=== PATIENT | male | born 1950 | race Caucasian/White ===

== ENCOUNTER 2018-05-15 08:48 | Day surgery (SDC) | payer MEDICARE, BC ==
[~2018-05-15 08:48] MED LIST: Lactated Ringers 1,000 ML IV SCH; Lidocaine 1% 4 ML ONE; Lidocaine 1%/Sod Bicarbonate in NS 8.4% 1 ML Syringe IDERM PRN; Midazolam 1 MG/ML 2 ML SDV ONE; Propofol 200 MG/20 ML SDV ONE; Sodium Chloride 0.9% 10 ML Syringe FLUSH PRN; fentaNYL 100 MCG/2 ML SDV ONE
--- NOTE | 2018-05-15 09:22 | PCM.PREANE ---
Preanesthetic Assessment - Procedure Proposed Procedure: screening colonoscopy - Anesthesia/Transfusion/Family Hx Anesthesia History: Prior Anesthesia Reaction Type of Anesthesia Reaction: Excessive Somnolence Family History of Anesthesia Reaction: No Transfusion History: No Prior Transfusion(s) - Review of Systems General: No Symptoms Pulmonary: No Symptoms Cardiovascular: No Symptoms Gastrointestinal: No Symptoms Neurological: No Symptoms - Physical Assessment NPO Status Date: 05/14/18 NPO Status Time: 22:30 O2 Sat by Pulse Oximetry: 93 Respiratory Rate: 16 Vital Signs: Last Vital Signs Temp 98.5 F 05/15/18 09:05 Pulse 79 05/15/18 09:05 Resp 16 05/15/18 09:05 BP 146/102 H 05/15/18 09:05 Pulse Ox 93 L 05/15/18 09:05 Height: 6 ft Weight: 133.81 kg ASA Class: 2 Mental Status: Alert & Oriented x3 Airway Class: Mallampati = 2 Dentition: Reports: Broken Tooth/Teeth, Missing Tooth/Teeth, Caries Thyro-Mental Finger Breadths: 3 Mouth Opening Finger Breadths: 3 ROM/Head Extension: Full Lungs: Clear to Auscultation, Normal Respiratory Effort Cardiovascular: Regular Rate, Regular Rhythm - Allergies Allergies/Adverse Reactions: Allergies Allergy/AdvReac Type Severity Reaction Status Date / Time No Known Allergies Allergy Verified 05/14/18 13:30 - Blood Blood Available: No - Acknowledgements Anesthesia Type Planned: MAC Pt an Appropriate Candidate for the Planned Anesthesia: Yes Alternatives and Risks of Anesthesia Discussed w Pt/Guardian: Yes Pt/Guardian Understands and Agrees with Anesthesia Plan: Yes PreAnesthesia Questionnaire HEENT History: Reports: Impaired Vision Cardiovascular History: Reports: Hypertension Respiratory History: Reports: None Gastrointestinal History: Reports: None Genitourinary History: Reports: None [employer]ER History: Reports: None Musculoskeletal History: Reports: None Neurological History: Reports: None Psychiatric History: Reports: None Endocrine/Metabolic History: Reports: None, Obesity/BMI 30+ Hematologic History: Reports: None Immunologic History: Reports: None Oncologic (Cancer) History: Reports: None Dermatologic History: Reports: None - Past Surgical History Head Surgeries/Procedures: Reports: None HEENT Surgical History: Reports: None Cardiovascular Surgical History: Reports: None Respiratory Surgical History: Reports: None GI Surgical History: Reports: Cholecystectomy Female Surgical History: Reports: None Male Surgical History: Reports: None Endocrine Surgical History: Reports: None Neurological Surgical History: Reports: None Musculoskeletal Surgical History: Reports: Other (See Below) Other Musculoskeletal Surgeries/Procedures:: finger surgery x 2 Oncologic Surgical History: Reports: None Dermatological Surgical History: Reports: None - SUBSTANCE USE Smoking Status *Q: Former Smoker (quit chew [id number]) Tobacco Use Within Last Twelve Months: No Second Hand Smoke Exposure: Yes Days Per Week of Alcohol Use: 1 (twice a month-2-3 beers) Recreational Drug Use History: No - HOME MEDS Home Medications: Home Meds Acetaminophen/Caffeine [Excedrin Tension Headache Cplt] 1 - 2 tab PO Q6H PRN [History] Aspirin/Acetaminophen/Caffeine [Idalia Migraine Formula Caplet] 1 - 2 tab PO Q6H PRN 05/14/18 [History] Ibuprofen [Advil] 1 - 3 cap PO Q6H PRN 05/14/18 [History] Lisinopril/Hydrochlorothiazide [Lisinopril-Hctz 10-12.5 mg Tab] 1 tab PO DAILY 05/14/18 [History] - CURRENT (IN HOUSE) MEDS Current Meds: Current Medications Lactated Ringer's (Ringers, Lactated) 1,000 mls @ 125 mls/hr IV ASDIRECTED GARTH Lidocaine/Sodium Bicarbonate (Buffered Lidocaine 1% In Ns 8.4%) 0.25 ml IDERM ONETIME PRN PRN Reason: Prior to IV Start Sodium Chloride (Saline Flush) 10 ml FLUSH ASDIRECTED PRN PRN Reason: Keep Vein Open Discontinued Medications Fentanyl (Sublimaze) Confirm Administered Dose 100 mcg .ROUTE .STK-MED ONE Stop: 05/15/18 08:36 Lidocaine HCl (Xylocaine-Mpf 1%) Confirm Administered Dose 4 mls @ as directed .ROUTE .STK-MED ONE Stop: 05/15/18 08:36 Midazolam HCl (Versed 1 Mg/Ml) Confirm Administered Dose 2 mg .ROUTE .STK-MED ONE Stop: 05/15/18 08:36 Propofol (Diprivan 20 Ml) Confirm Administered Dose 200 mg .ROUTE .STK-MED ONE Stop: 05/15/18 08:36
[2018-05-15] MEDS ORDERED: Labetalol 100 MG/20 ML MDV ONE (09:41)
--- NOTE | 2018-05-15 10:31 | PCM48HPAN ---
Post Anesthesia Note - EVALUATION WITHIN 48HRS OF ANESTHETIC Vital Signs in Normal Range: Yes Patient Participated in Evaluation: Yes Respiratory Function Stable: Yes Airway Patent: Yes Cardiovascular Function Stable: Yes Hydration Status Stable: Yes Pain Control Satisfactory: Yes Nausea and Vomiting Control Satisfactory: Yes Mental Status Recovered: Yes Pulse Rate: 66 SaO2: 93 Resp Rate: 16 Temperature: 97.3 F Blood Pressure: 119/81
--- NOTE | 2018-05-15 10:35 | PCM.OPNOTE ---
- General Post-Op/Procedure Note Date of Surgery/Procedure: 05/15/18 Operative Procedure(s): Screening colonoscopy with polypectomy Findings: 1. Poor prep 2. Cecal polyp 3. Irregular sigmoid mucosa 4. Diverticulosis Pre Op Diagnosis: colorectal cancer screening Post-Op Diagnosis: same Anesthesia Technique: CARLOS Primary Surgeon: Manuela Raymond Anesthesia Provider: Emily Walters Pathology: 1. Cecal polyp 2. Transverse colon mucosa Fluid Replacement, Intraop: 600 Output, Urine Amount: 0 EBL in mLs: 0 Complications: None apparent
--- NOTE | 2018-05-15 10:36 | PCM.PRNOTE ---
- Free Text/Narrative Note: Operative Report Date of Surgery/Procedure: May 15, 2018 Operative Procedure: Colonoscopy to cecum with polypectomy Pre Op Diagnosis: colorectal cancer screening Post-Op Diagnosis: Same Surgeon: Manuela Raymond Anesthesia Technique: MAC Anesthesia Provider: Greta Walters CRNA IV Fluid Replacement, Intraop: 1600cc Output, Urine Amount: 0cc EBL : 0cc Findings: 1. Poor prep 2. Cecal polyp 3. Irregular sigmoid mucosa 4. Diverticulosis Specimens: 1. Cecal polyp 2. Sigmoid mucosa biopsy Indication: The patient is a 67 year-old gentleman who presented to the outpatient clinic requesting colorectal cancer screening. We discussed the procedure of a screening colonoscopy including the polypectomy and biopsy. Risks of bleeding and perforation were discussed, the patient understood and wished to proceed. Written and consent was obtained Description of the procedure: The patient was brought to the endoscopy suite and placed in the left lateral decubitus position. Appropriate monitors were applied. The patient was given MAC anesthesia. An anorectal examination was performed, revealing no external abnormalities. The scope was placed into the rectum and advanced to cecum with minimal difficulty requiring abdominal pressure to reach the cecum. The patient s cecum was entered, and the ileocecal valve was identified and normal. The appendiceal orifice could not be visualized due to large pieces of food debris. At this point, the scope was withdrawn, paying careful attention to the mucosa. The patient had poor bowel prep, allowing for visualization of 60 % of the mucosa. Large pieces of food debris was noted throughout the colon. A small cecal polyp was seen and removed using cold biopsy forceps. There was some area of irregularity in the sigmoid colon. This was not clearly a polyp, however, appeared to be abnormal. A biopsy was taken using cold biopsy forceps. The patient also diverticulosis in the descending and sigmoid colon. In the rectum, the scope was retroflexed and no abnormalities were noted, except for some hemorrhoidal tissue. The scope was placed back in the lumen and the excess air was aspirated. The patient tolerated the procedure well. Complications: none apparent Condition: Good, transported to PACU in stable condition The patient will need a repeat colonoscopy in one year due to poor bowel preparation. Manuela Raymond MD General Surgery
== END 2018-05-15 11:18 | disposition home or self-care (01) ==
LOC: JD.SDS 08:48
PROVIDERS: ATTEND Surgery
DX: Z12.11 Encounter for screening for malignant neoplasm of colon (principal); D12.0 Benign neoplasm of cecum; K63.5 Polyp of colon; K57.30 Diverticulosis of large intestine without perforation or abscess without bleeding; K64.9 Unspecified hemorrhoids; I10 Essential (primary) hypertension; Z79.899 Other long term (current) drug therapy; Z87.891 Personal history of nicotine dependence; E66.9 Obesity, unspecified; Z79.82 Long term (current) use of aspirin
CPT/HCPCS: 45380; J2250; J2704; J3010; J3490; J7120; 00812; J2001

== ENCOUNTER 2020-01-26 09:43 | Day surgery (SDC) | payer MEDICARE, BC ==
[~2020-01-26 09:43] MED LIST changes: -Lidocaine 1% 4 ML ONE; -Midazolam 1 MG/ML 2 ML SDV ONE; -Propofol 200 MG/20 ML SDV ONE; -fentaNYL 100 MCG/2 ML SDV ONE
--- NOTE | 2020-01-26 10:40 | PCM.PREANE ---
Preanesthetic Assessment - Anesthesia/Transfusion/Family Hx Anesthesia History: Prior Anesthesia Without Reaction Family History of Anesthesia Reaction: No Transfusion History: No Prior Transfusion(s) - Review of Systems General: No Symptoms Pulmonary: No Symptoms Cardiovascular: No Symptoms Gastrointestinal: No Symptoms Neurological: No Symptoms Other: Reports: None - Physical Assessment NPO Status Date: 01/25/20 NPO Status Time: 23:30 Vital Signs: Last Vital Signs Temp 36.8 C 01/26/20 09:50 Pulse 76 01/26/20 09:50 Resp 16 01/26/20 09:50 BP 146/91 H 01/26/20 09:50 Pulse Ox 93 L 01/26/20 09:50 Height: 1.83 m Weight: 132.449 kg ASA Class: 3 Dentition: Reports: Broken Tooth/Teeth, Missing Tooth/Teeth Thyro-Mental Finger Breadths: 3 Mouth Opening Finger Breadths: 3 ROM/Head Extension: Full Lungs: Clear to Auscultation, Normal Respiratory Effort Cardiovascular: Regular Rate, Regular Rhythm - Allergies Allergies/Adverse Reactions: Allergies Allergy/AdvReac Type Severity Reaction Status Date / Time No Known Allergies Allergy Verified 01/25/20 11:47 - Acknowledgements Anesthesia Type Planned: MAC Pt an Appropriate Candidate for the Planned Anesthesia: Yes Alternatives and Risks of Anesthesia Discussed w Pt/Guardian: Yes Pt/Guardian Understands and Agrees with Anesthesia Plan: Yes PreAnesthesia Questionnaire HEENT History: Reports: Impaired Vision Cardiovascular History: Reports: Hypertension, SOB on Exertion, Other (See Below) (5-20 echo EF 45-50%) Respiratory History: Reports: None Gastrointestinal History: Reports: Diverticulosis, Other (See Below) Other Gastrointestinal History: tubular adenoma Genitourinary History: Reports: None PLATE HANGER History: Reports: None Musculoskeletal History: Reports: None Neurological History: Reports: None Psychiatric History: Reports: None Endocrine/Metabolic History: Reports: Obesity/BMI 30+ Hematologic History: Reports: None Immunologic History: Reports: None Oncologic (Cancer) History: Reports: None Dermatologic History: Reports: None - Past Surgical History Head Surgeries/Procedures: Reports: None HEENT Surgical History: Reports: None Cardiovascular Surgical History: Reports: None Respiratory Surgical History: Reports: None GI Surgical History: Reports: Cholecystectomy, Colonoscopy Female Surgical History: Reports: None Male Surgical History: Reports: None Endocrine Surgical History: Reports: None Neurological Surgical History: Reports: None Musculoskeletal Surgical History: Reports: Other (See Below) Other Musculoskeletal Surgeries/Procedures:: finger surgery x 2 Oncologic Surgical History: Reports: None Dermatological Surgical History: Reports: None - SUBSTANCE USE Smoking Status *Q: Former Smoker Recreational Drug Use History: No - HOME MEDS Home Medications: Home Meds Aspirin/Acetaminophen/Caffeine [Idalia Migraine Formula Caplet] 1 - 2 tab PO Q6H PRN 05/14/18 [History] Aspirin 81 mg PO DAILY 01/25/20 [History] Losartan Potassium 50 mg PO DAILY 01/25/20 [History] Rosuvastatin Calcium 20 mg PO DAILY 01/25/20 [History] - CURRENT (IN HOUSE) MEDS Current Meds: Current Medications Lactated Ringer's (Ringers, Lactated) 1,000 mls @ 125 mls/hr IV ASDIRECTED GARTH Stop: 01/26/20 23:00 Last Admin: 01/26/20 10:00 Dose: 125 mls/hr Documented by: Lidocaine/Sodium Bicarbonate (Buffered Lidocaine 1% In Ns 8.4%) 0.25 ml IDERM ONETIME PRN PRN Reason: Prior to IV Start Stop: 01/26/20 18:00 Last Admin: 01/26/20 09:59 Dose: 0.25 ml Documented by: Sodium Chloride (Saline Flush) 10 ml FLUSH ASDIRECTED PRN PRN Reason: Keep Vein Open Stop: 01/26/20 18:00
[2020-01-26] MEDS ORDERED: Propofol 200 MG/20 ML SDV ONE ×3 (11:34→12:06)
[2020-01-26] MEDS ORDERED: Lidocaine 1% 4 ML ONE (12:10)
--- NOTE | 2020-01-26 12:33 | PCM.OPNOTE ---
- General Post-Op/Procedure Note Date of Surgery/Procedure: 01/26/20 Findings: 1. Diverticulosis 2. Cecal polyp 3. Transverse colon polyp x5 4. Descending colon polyp x2 Pre Op Diagnosis: history of colon polyps and incomplete colonoscopy due to poor prep Post-Op Diagnosis: same Anesthesia Technique: CARLOS Primary Surgeon: Manuela Raymond Anesthesia Provider: Kailyn Polanco Pathology: 1. Cecal polyp 2. Transverse colon polyp x5 3. Descending colon polyp x2 Fluid Replacement, Intraop: 700 Complications: none apparent Condition: Good
--- NOTE | 2020-01-26 12:34 | PCM48HPAN ---
Post Anesthesia Note - EVALUATION WITHIN 48HRS OF ANESTHETIC Vital Signs in Normal Range: Yes Patient Participated in Evaluation: Yes Respiratory Function Stable: Yes Airway Patent: Yes Cardiovascular Function Stable: Yes Hydration Status Stable: Yes Pain Control Satisfactory: Yes Nausea and Vomiting Control Satisfactory: Yes Mental Status Recovered: Yes Vital Signs: Last Vital Signs Temp 36.8 C 01/26/20 09:50 Pulse 76 01/26/20 09:50 Resp 16 01/26/20 09:50 BP 146/91 H 01/26/20 09:50 Pulse Ox 93 L 01/26/20 09:50
--- NOTE | 2020-01-26 12:34 | PCM.PRNOTE ---
- Free Text/Narrative Note: Operative Report Date of Surgery/Procedure: January 26, 2020 Operative Procedure: Colonoscopy to cecum Pre Op Diagnosis: incomplete colonoscopy with history of colon polyps Post-Op Diagnosis: Same Surgeon: Manuela Raymond MD Anesthesia Technique: MAC Anesthesia Provider: Kailyn Polanco CRNA IV Fluid Replacement, Intraop: 700cc Output, Urine Amount: 0cc EBL : 0cc Findings: 1. Diverticulosis 2. Cecal polyp 3. Transverse colon polyp x5 4. Descending colon polyp x2 Specimens: 1. Cecal polyp 2. Transverse colon polyp x5 3. Descending colon polyp x2 Indication: The patient is a 69 year-old gentleman who presented to the outpatient clinic requesting colorectal cancer screening after a previous attempt that could not be completed due to poor prep. The patient has a history of colon polyps. We discussed the procedure of a screening colonoscopy including the polypectomy and biopsy. Risks of bleeding and perforation were discussed, the patient understood and wished to proceed. Written and consent was obtained Description of the procedure: The patient was brought to the endoscopy suite and placed in the left lateral decubitus position. Appropriate monitors were applied. The patient was given MAC anesthesia. An anorectal examination was performed, revealing no external abnormalities. The scope was placed into the rectum and advanced to cecum with minimal difficulty requiring no additional maneuvers. The patients cecum was entered, and the ileocecal valve and appendiceal orifice were identified and normal. At this point, the scope was withdrawn, paying careful attention to the mucosa. The patient had a good bowel prep, allowing for visualization of 90% of the mucosa. A 2mm cecal polyp was noted and removed with a jumbo cold biopsy forceps. He had five transverse colon polyps ranging from 2-4mm and flat, these were removed with a jumbo cold biopsy forceps. Two flat polyps measuring 3mm each were removed from the descending colon. He also had diverticulosis in the descending and sigmoid colon without diverticulitis.. In the rectum, the scope was retroflexed and no abnormalities were noted, except for some hemorrhoidal tissue. The scope was placed back in the lumen and the excess air was aspirated. The patient tolerated the procedure well. Complications: none apparent Condition: Good, transported to PACU in stable condition Manuela Raymond MD General Surgery
== END 2020-01-26 12:53 | disposition home or self-care (01) ==
LOC: JD.SDS 09:43
PROVIDERS: ATTEND Surgery
DX: D12.3 Benign neoplasm of transverse colon (principal); K57.30 Diverticulosis of large intestine without perforation or abscess without bleeding; I10 Essential (primary) hypertension; E66.9 Obesity, unspecified; Z86.010 Personal history of colon polyps; Z01.812 Encounter for preprocedural laboratory examination; Z20.828 Contact with and (suspected) exposure to other viral communicable diseases; Z87.891 Personal history of nicotine dependence; Z79.899 Other long term (current) drug therapy; Z68.39 Body mass index [BMI] 39.0-39.9, adult
CPT/HCPCS: 45380; 88305; J2001; J2704; J7120; U0002; 00811

== ENCOUNTER 2023-07-16 06:57 | Day surgery (SDC) | payer BC, MEDICARE ==
[~2023-07-16 06:57] MED LIST changes: -Lactated Ringers 1,000 ML IV SCH; -Lidocaine 1%/Sod Bicarbonate in NS 8.4% 1 ML Syringe IDERM PRN; +Sodium Chloride 0.9% 10 ML Syringe FLUSH SCH
[2023-07-16] MEDS ORDERED: Lidocaine 1% 6 ML ONE (07:15)
[2023-07-16] MEDS ORDERED: Propofol 200 MG/20 ML SDV ONE (07:15)
[2023-07-16] MEDS ORDERED: fentaNYL 100 MCG/2 ML SDV ONE (07:15)
[2023-07-16] MEDS: Lactated Ringers 1,000 ML IV SCH (07:20)
[2023-07-16] MEDS ORDERED: Lidocaine 1% 2 ML ONE (08:04)
[2023-07-16] MEDS ORDERED: Lidocaine 1% 4 ML ONE (08:46)
== END 2023-07-16 09:35 | disposition home or self-care (01) ==
LOC: JD.SDS 06:57
PROVIDERS: ATTEND Surgery
DX: Z12.11 Encounter for screening for malignant neoplasm of colon (principal); D12.4 Benign neoplasm of descending colon; D12.3 Benign neoplasm of transverse colon; K52.9 Noninfective gastroenteritis and colitis, unspecified; K57.30 Diverticulosis of large intestine without perforation or abscess without bleeding; K64.8 Other hemorrhoids; I10 Essential (primary) hypertension; E66.9 Obesity, unspecified; Z79.82 Long term (current) use of aspirin; Z79.899 Other long term (current) drug therapy; Z86.010 Personal history of colon polyps
CPT/HCPCS: 45380; J2704; J3010; J7120; 00811; 99100; J3490